=== PATIENT | female | born 1980 | race Caucasian/White ===

== ENCOUNTER 2017-03-02 22:50 | Emergency (ER) | payer MEDICARE, MEDICAID ==
[~2017-03-02 22:50] MED LIST: COREG DPS12.5 MG PO; HCTZ12.5 MG PO; KEPPRA DPS500 MG PO; KLONOPIN DPS1 MG PO; KLOR-CON M2020 ME1 PO; MEDROL DPS4 MG PO; PRILOSEC DPS20 MG PO; RISPERDAL3 MG PO; TEGRETOL DPS200 MG PO; [UNRECOGNIZED DRUG - OTHER] PO
--- NOTE | 2017-03-06 01:31 | ER ---
ADMIT: 03/02/2017 RM/LOC: ER [facility] MR#: [id number] [address] [address] [facility] [address] [place] [address] Emergency Room Report SEX: F AGE: 36 : 1980 DATE: 03/02/2017 ADDENDUM: A 36-year-old female with history of fairly frequent migraines, who is well-known to our Emergency Department, presents with migraine going on for the past 2 days. This is similar to her previous migraines. She was given shot of DHE, Reglan, and Toradol in addition to Benadryl p.o. Her headache was significantly improved and she felt fine being discharged home. She is to follow up with Dr. Betancur as needed and take her normal medications. DIAGNOSIS: Migraines. Maximo Wilkins MD/ makeda JOB #: [id number] CC: Maximo Wilkins MD, Attending Physician Haresh Betancur MD, Family Physician
[2017-06-21] MEDS ORDERED: TEGRETOL DPS200 MG PO (13:19)
[2017-06-21] MEDS ORDERED: RISPERIDONE4 MG PO (13:19)
[2017-06-21] MEDS ORDERED: HYDROXYZPAM PO (13:21)
[2017-06-21] MEDS ORDERED: OMEPRAZOLE40 MG PO (13:22)
[2017-06-21] MEDS ORDERED: SERTRALINE HCL50 MG PO (13:22)
[2017-06-21] MEDS ORDERED: KEPPRA DPS500 MG PO (13:22)
[2017-06-21] MEDS ORDERED: CARVEDILOL12.5 MG PO (13:22)
[2017-06-21] MEDS ORDERED: KLOR-CON M2020 ME1 PO (13:22)
[2017-06-21] MEDS ORDERED: CLONAZEPAM1 MG PO (13:23)
[2017-06-21] MEDS ORDERED: KLONOPIN DPS1 MG PO (13:23)
[2017-06-21] MEDS ORDERED: TOPIRAMATE100 MG PO (13:23)
[2017-06-21] MEDS ORDERED: DULERA 100/58.8 GM IH (13:23)
[2017-06-21] MEDS ORDERED: AUGMENTIN 250250 MG PO (13:24)
[2017-06-21] MEDS ORDERED: NICOTINE PATCH1 EAC2 TD (13:24)
[2017-06-21] MEDS ORDERED: SPIRIVA18 MCG IH (13:24)
[2017-06-21] MEDS ORDERED: LASIX DPS20 MG PO (13:25)
== END 2017-03-02 23:55 | disposition home or self-care (01) ==
LOC: ER 22:50
DX: G43.909 Migraine, unspecified, not intractable, without status migrainosus (principal)

== ENCOUNTER 2017-06-14 20:15 | Inpatient (IN) | payer MEDICARE, MEDICAID ==
[2017-06-21] MEDS ORDERED: RISPERIDONE4 MG PO (13:19)
[2017-06-21] MEDS ORDERED: TEGRETOL DPS200 MG PO (13:19)
[2017-06-21] MEDS ORDERED: HYDROXYZPAM PO (13:21)
[2017-06-21] MEDS ORDERED: SERTRALINE HCL50 MG PO (13:22)
[2017-06-21] MEDS ORDERED: CARVEDILOL12.5 MG PO (13:22)
[2017-06-21] MEDS ORDERED: KEPPRA DPS500 MG PO (13:22)
[2017-06-21] MEDS ORDERED: KLOR-CON M2020 ME1 PO (13:22)
[2017-06-21] MEDS ORDERED: OMEPRAZOLE40 MG PO (13:22)
[2017-06-21] MEDS ORDERED: CLONAZEPAM1 MG PO (13:23)
[2017-06-21] MEDS ORDERED: TOPIRAMATE100 MG PO (13:23)
[2017-06-21] MEDS ORDERED: KLONOPIN DPS1 MG PO (13:23)
[2017-06-21] MEDS ORDERED: DULERA 100/58.8 GM IH (13:23)
[2017-06-21] MEDS ORDERED: AUGMENTIN 250250 MG PO (13:24)
[2017-06-21] MEDS ORDERED: NICOTINE PATCH1 EAC2 TD (13:24)
[2017-06-21] MEDS ORDERED: SPIRIVA18 MCG IH (13:24)
[2017-06-21] MEDS ORDERED: LASIX DPS20 MG PO (13:25)
== END 2017-06-15 02:30 | disposition short-term general hospital (02) | DRG 917 ==
DX: T43.612A Poisoning by caffeine, intentional self-harm, initial encounter (principal); J96.90 Respiratory failure, unspecified, unspecified whether with hypoxia or hypercapnia; R56.9 Unspecified convulsions; I10 Essential (primary) hypertension; F17.210 Nicotine dependence, cigarettes, uncomplicated; D50.9 Iron deficiency anemia, unspecified; G43.909 Migraine, unspecified, not intractable, without status migrainosus; I70.1 Atherosclerosis of renal artery; F31.9 Bipolar disorder, unspecified; F41.9 Anxiety disorder, unspecified; K21.9 Gastro-esophageal reflux disease without esophagitis

== ENCOUNTER 2017-06-18 10:10 | Inpatient (IN) | payer MEDICARE, MEDICAID ==
[~2017-06-18] VITALS: Ht 157.5 cm; Wt 53.1 kg
--- NOTE | ~2017-06-18 | ECH ---
Transthoracic Echocardiography Report (TTE) Demographics Patient Name ARCADIO HINES Date of Study 06/19/2017 Patient Number [id number] Visit Number [id number] Date of 1980 Room Number 412 Accession Number [id number] Gender Female Age 37 year(s) Referring Adal Jurado Andrew Sales Agent Business Services Pura Meek [facility] Physician Physician Interpreting Uriah Thomas Production Supervisor Trainee Physician Supervising Ordering Physician Uriah Thomas MD/MLP Nurse Stress Rigger Helper Conclusions Summary Technically adequate exam. The estimated left ventricular ejection fraction is 45%. Segmental wall motion abnormalities noted. Mild to moderate left ventricular hypertrophy. Normal right ventricle structure and function. Mild mitral regurgitation by color Doppler. There is mild to moderate aortic regurgitation by color Doppler. Mild tricuspid regurgitation by color Doppler. Estimated pulmonary pressures within normal limits. Procedure Type of Study TTE procedure:Echo Complete SF. Procedure Date Date: 06/19/2017 Start: 09:23 AM Technical Quality: Adequate visualization Indications:Shortness of breath, Elevated Troponin and Congestive heart failure. Additional Indications:elevated BNP, Appropriate Use Criteria: 9 Height: 62 inches Weight: 119 pounds BSA: 1.53 m Rhythm: Within normal limits HR: 80 bpm BP: 125/89 mmHg M-Mode/2D Measurements LV Diastolic Dimension: 4.06 cm LV Systolic Dimension: 3.17 cm LV Septum Diastolic: 1.2 cm LV PW Diastolic: 1.38 cm AO Root Dimension: 2.85 cm Cardiac Output: 2.96 l/min LA Dimension: 3.21 cm Cardiac Index: 1.93 l/min*m RV Diastolic Dimension: 2.73 cm LA volume index: 34 ml/m LVOT: 1.66 cm LVOT VTI: 17.1 cm RV Base: 3.9 cm LV Stroke volume: 36.99 ml RV Mid: 2.7 cm LV Stroke volume index: 24.18 ml/m RV Length: 5.7 cm TAPSE: 2 cm TDI-S': 0.8 cm/s Doppler Measurements AV Peak Velocity: 1.12 m/s MV Peak E-Wave: 0.73 m/s AV Peak Gradient: 5.06 mmHg MV Peak A-Wave: 0.51 m/s AV Mean Gradient: 2.89 mmHg MV E/A Ratio: 1.45 LVOT Peak Velocity: 0.81 m/s MV P1/2t: 52.5 msec AV Area (Continuity):1.87 cm AV P1/2t: 537.8 msec MV Deceleration Time: 232.1 msec TR Velocity:2.19 m/s MV Area (PHT): 4.19 cm TR Gradient:19.18 mmHg PV Peak Velocity: 0.64 m/s Estimated RAP:5 mmHg PV Peak Gradient: 1.62 mmHg Estimated RVSP: 24 mmHg Estimated PASP: 24.18 mmHg RA Area: 15.61 cm Findings Left Ventricle The left ventricle is normal in size . Mild to moderate left ventricular hypertrophy. Diastolic assessment reveals normal relaxation. Right Ventricle Normal right ventricle structure and function. Left Atrium Left atrium at upper limits of normal size. Right Atrium Normal right atrial size. Mitral Valve Normal mitral valve structure and function. Mild mitral regurgitation by color Doppler. Aortic Valve Normal aortic valve structure and function. There is mild aortic regurgitation by color Doppler. Tricuspid Valve Normal tricuspid valve structure and function. Mild tricuspid regurgitation by color Doppler. Estimated pulmonary pressures within normal limits. Pulmonic Valve Normal pulmonic valve structure and function. Mild pulmonic valve regurgitation by color Doppler. Pericardial Effusion No evidence of pericardial effusion. Miscellaneous Visualized portions of the aortic root and ascending aorta appear normal in size. Pleural Effusion No evidence of pleural effusion. Contractility Score LV regional wall motion:(0-Non visualized 1-Normal 2-Hypokinesis 3-Akinesis 4-Dyskinesis 5-Aneurysm) Signature
--- NOTE | 2017-06-19 16:55 | HP ---
ADMIT: 06/18/2017 RM/LOC: 412 [facility] MR#: [id number] [address] [address] ARCADIO HINES [address] [place] [address] [place] [address] History and Physical SEX: F AGE: 37 : 1980 DATE OF SERVICE: CHIEF COMPLAINT: Shortness of breath. HISTORY OF PRESENT ILLNESS: This is a 37-year-old female, she has history of seizure disorder, bipolar, and "leaky aortic valve." She apparently was admitted just a few days ago after she was brought in after having a prolonged and protracted seizure at home. Apparently, she had been feeling very tired and so was taking lots of extra NoDoz caffeine tablets for about 3 days prior, but ultimately ended up having surgery. She was transferred out because of our lack of neurologist. However, she ultimately was discharged after she did okay, but then yesterday started noticing feeling short of breath and today was even worse. She then had some worsening shortness of breath when she lied down and was unable to do it. She is also having some associated cough and has productive sputum. She was not really able to tell me any more description than that. She has smoked for a long time. She wonders if this is related to any of her underlying problems. She does have some tightness in her chest when she lies down, but denies any pain in her chest per se. PAST MEDICAL HISTORY: Includes: 1. Migraines. 2. Hypertension. 3. Seizures. 4. Right renal artery stenosis. 5. Bipolar. 6. Anxiety. 7. Gastroesophageal reflux disease. 8. Chronic tobacco abuse. 9. History of anemia. 10.Aortic regurgitation. 11.History of noncompliance. PAST SURGICAL HISTORY: Includes: 1. Right oophorectomy. 2. Outpatient tubal ligation. 3. C-sections x2. 4. Right carpal tunnel. ALLERGIES: INCLUDE DIOVAN AND WELLBUTRIN. MEDICATIONS: Include: 1. Risperdal 4 mg at bedtime. 2. Coreg 12.5 b.i.d. 3. Omeprazole 20 mg b.i.d. 4. Klonopin 1 mg tablets one twice a day and then 1-1/2 in the evening as needed. 5. Carbamazepine mg in the morning, 200 mg at noon, and 200 mg in the evening. 6. Potassium 20 mEq. ADMIT: 06/18/2017 RM/LOC: 412 [facility] MR#: [id number] [address] [address] [place] [address] History and Physical SEX: F AGE: 37 : 1980 7. Keppra 1500 mg b.i.d. 8. Topamax 100 mg at bedtime. 9. Hydralazine 25 mg q.6 hours p.r.n. 10.Zoloft 50 mg daily at bedtime. FAMILY HISTORY: Reviewed but noncontributory. SOCIAL HISTORY: She is a long-time smoker and she is here with her significant other. REVIEW OF SYSTEMS: She has been feeling chilled lately. The patient said the day after she was discharged, she had a couple of black stools, but has not had any more of that since then. PHYSICAL EXAMINATION: VITAL SIGNS: Temperature is 96.3, pulse 85, respirations 16, blood pressure 128/89, oxygen saturation 98% on room air. GENERAL: This is a 37-year-old white female. She appears older than her stated age. She is in no apparent distress. She is alert. She is oriented. The room smells like tobacco smoke and alcohol. HEENT: Pupils are equal, round, and reactive to light and accommodation. Extraocular muscles are intact. Throat clear. NECK: Supple. Trachea midline. Thyroid not palpable. HEART: Regular rate and rhythm but distant. LUNGS: Diminished bilaterally but clear. Some faint crackles in right base. ABDOMEN: Soft without any tenderness. LOWER EXTREMITIES: Have no edema. NEURO: Her cranial nerves are intact. She can move all extremities equally bilaterally. She is wrapped up in a blanket right now and saying that she feels chilled. LABORATORY AND X-RAY DATA: CBC with a white count of 6.9, hemoglobin 9.0, platelets of 311. Sodium 137, potassium 4.2, bicarb 18, BUN 16, creatinine 0.9, alkaline phosphatase 194, AST is 60, ALT 69, bilirubin is normal 0.8. NT- proBNP is 7900. Troponin I is 0.131. Creatine kinase 365. D-dimer is elevated. Chest CT scan with marked emphysematous and fibrotic change; bilateral pleural effusions, right greater than left with atelectatic changes with associated inflammatory pneumonia on the right more than left. Stable nodule in left lung. Small pericardial effusion. Stable mediastinal lymphadenopathy. ASSESSMENT: 1. Shortness of breath. 2. Aspiration pneumonia. 3. Chronic obstructive pulmonary disease. 4. Elevated troponin. 5. Elevated BNP. 6. Bipolar disorder. 7. History of anemia. ADMIT: 06/18/2017 RM/LOC: [address] [place] [address] MR#: [id number] [address] [place] [address] [place] [address] History and Physical SEX: F AGE: 37 : 1980 8. Melena. PLAN: She is admitted to the hospital. We will watch her pretty carefully. Watch her hemoglobin carefully. She has already been given some Lasix. We will give her some prednisone or some steroids and some antibiotics to hopefully clear her lungs a little bit, that should help with the COPD and emphysema as well. She did get a breathing treatment in the emergency room, but this did not help her symptoms. We will avoid that for now. She has a severe history of anxiety, so we will try not to make this any worse. We will continue her on her same seizure medications and likely have to get an echocardiogram given the elevated cardiac markers and possible CHF symptoms. Adrien Galeas MD/ makeda JOB #: [id number] CC: Adrien Galeas, Attending Physician Adrien Galeas, Family Physician
--- NOTE | 2017-06-20 19:25 | ER ---
ADMIT: 06/18/2017 RM/LOC: 412 [facility] MR#: [id number] [address] [address] ARCADIO HINES [address] [place] [address] Emergency Room Report SEX: F AGE: 37 : 1980 DATE: 06/18/2017 SUBJECTIVE: The patient is a 37-year-old female with a past medical history of anxiety and depression, bipolar, and allegedly leaky aortic valve, and possible aortic regurgitation, who came to the ER with a chief complaint of shortness of breath for the last 3 days. Per chart and per the patient, 2 days ago, she had a seizure for which she came to the ER and seizure lasted about 10 minutes and she was intubated, and the patient was transferred to other centers. The patient was extubated and states that since 3 days ago, she noticed she has increased shortness of breath. Per chart and also per the patient, at that time, there was some suspicion of overdoses specifically on caffeine pills as the patient states that she felt recently very tired and took too many caffeine pills. Urine tox was negative. The patient denies any chest pain, but complains of supraumbilical mild abdominal pain. The patient denies any nausea or vomiting or diarrhea. The patient also denies any chest pain. Shortness of breath is exertional and the patient states that even walking a small distance, even few rooms would make her short of breath. Also, the patient complains orthopnea and stated that if she lies flat, she could not breathe well, becomes more short of breath. The patient denies any fever. PHYSICAL EXAMINATION: VITAL SIGNS: In the ER, the patient was tachypneic with a respiratory rate of 24 to 30, O2 saturation was good in the high 90s, and the patient was afebrile, blood pressure was 117/89. GENERAL: The patient was in mild distress and anxious. The patient was not very cooperative. HEAD AND NECK: Trachea is midline. There is no bruit in the neck. CHEST: Questionable for some fine crackles on the posterior bilaterally. HEART: Normal S1, S2 without any murmurs. ABDOMEN: Soft and nontender in all of the abdomen with possible intermittent supraumbilical mild tenderness which in the repeat exam was gone. The patient had no CVA tenderness. Rest of the physical exam is negative and noncontributory. EKG showed normal sinus rhythm with a rate of 75. The patient received Ativan ADMIT: 06/18/2017 RM/LOC: 412 [facility] MR#: [id number] [address] [address] [place] [address] Emergency Room Report SEX: F AGE: 37 : 1980 1 mg IV for possible anxiety. The patient was reexamined and still had tachypnea. The patient received one breathing treatment with DuoNeb. Chest x- ray showed bilateral lower effusion and possible edema, mild. White blood cells were 6.9 with a hemoglobin of 9 and platelets of 315,000. Troponin was mildly elevated to 0.13 and BNP was elevated to 7900. D-dimer was also elevated to 2.2. CT angiogram of the chest was negative for PE, but was positive for pleural effusion. DIAGNOSIS: With the diagnosis of new onset congestive heart failure and rule out [id number] elevation myocardial infarction, the patient was admitted for further followups and treatments. Donald Renteria MD/ makeda JOB #: [id number] CC: Adrien Galeas MD, Attending Physician Adrien Galeas MD, Family Physician
[2017-06-21] MEDS ORDERED: RISPERIDONE4 MG PO (13:19)
[2017-06-21] MEDS ORDERED: TEGRETOL DPS200 MG PO (13:19)
[2017-06-21] MEDS ORDERED: HYDROXYZPAM PO (13:21)
[2017-06-21] MEDS ORDERED: OMEPRAZOLE40 MG PO (13:22)
[2017-06-21] MEDS ORDERED: KEPPRA DPS500 MG PO (13:22)
[2017-06-21] MEDS ORDERED: CARVEDILOL12.5 MG PO (13:22)
[2017-06-21] MEDS ORDERED: SERTRALINE HCL50 MG PO (13:22)
[2017-06-21] MEDS ORDERED: KLOR-CON M2020 ME1 PO (13:22)
[2017-06-21] MEDS ORDERED: KLONOPIN DPS1 MG PO (13:23)
[2017-06-21] MEDS ORDERED: DULERA 100/58.8 GM IH (13:23)
[2017-06-21] MEDS ORDERED: TOPIRAMATE100 MG PO (13:23)
[2017-06-21] MEDS ORDERED: CLONAZEPAM1 MG PO (13:23)
[2017-06-21] MEDS ORDERED: AUGMENTIN 250250 MG PO (13:24)
[2017-06-21] MEDS ORDERED: SPIRIVA18 MCG IH (13:24)
[2017-06-21] MEDS ORDERED: NICOTINE PATCH1 EAC2 TD (13:24)
[2017-06-21] MEDS ORDERED: LASIX DPS20 MG PO (13:25)
--- NOTE | 2017-06-22 13:40 | CO ---
ADMIT: 06/18/2017 RM/LOC: 412 [facility] MR#: [id number] [facility]#: [id number] [address] [address] ARCADIO HINES [place] [address] Consultation SEX: F AGE: 37 : 1980 DATE OF CONSULTATION: 06/19/2017 ATTENDING PHYSICIAN: Adrien Galeas CONSULTING PHYSICIAN: Jefry Kruse MD REASON FOR CONSULT: Possible heart failure. HISTORY OF PRESENT ILLNESS: Arcadio is a 37-year-old lady who apparently was seen in the past, and she says there was some sort of valve problem. I have not seen the records at this point. I was asked to see her today at the request of Dr. Galeas for possible heart failure contributing to her shortness of breath. Arcadio has an underlying seizure disorder. Just last week, she came in with a prolonged seizure and fell down her stairs. She was able to regain consciousness, but required intubation. She was ultimately transferred to [place]. She said a few days later, she was discharged. She was short of breath ever since she was discharged home. She said her shortness is so bad that she cannot lie flat at night. She has had persistent pretty dry cough, which has been very irritating to her. She denies chest pain or palpitations. Besides the questionable history of valve disease, she has not had pericarditis or history of rheumatic fever. She denies significant lightheadedness. No recent syncope, and she has not had a recurrent seizure. She denies worsening edema. Her BNP is elevated. She did have a CT of her chest last night, which did not show any pulmonary emboli. She had marked emphysematous and fibrotic changes and some rather small bilateral pleural effusions. PAST MEDICAL HISTORY: Illnesses include bipolar disorder, gastroesophageal reflux disease, chronic anemia, questionable history of aortic valve disease, seizure disorder, hypertension, migraine headaches, and anxiety. ALLERGIES: SHE IS ALLERGIC TO WELLBUTRIN AND DIOVAN. HOME MEDICATIONS: Include: 1. Carbamazepine 200 mg b.i.d. 2. Risperidone 4 mg at bedtime. 3. Levetiracetam 1500 mg daily. 4. Potassium 60 mEq daily. 5. Omeprazole 40 mg b.i.d. 6. Zoloft 50 mg daily. 7. Carvedilol 12.5 mg b.i.d. 8. Topiramate 100 mg at bedtime. 9. Clonazepam 1 mg b.i.d. p.r.n. and at bedtime. PAST SURGICAL HISTORY: Includes 2 C-sections, carpal tunnel surgery, and I believe she has had a tubal ligation. ADMIT: 06/18/2017 RM/LOC: 412 [facility] MR#: [id number] [address] [address] [facility] [address] [place] [address] Consultation SEX: F AGE: 37 : 1980 FAMILY HISTORY: Her father in his early 50s of a heart attack. Several grandparents with diabetes. No family history of cancer. Grandmother had a stroke. Her mother suffers from COPD, but is alive. SOCIAL HISTORY: Arcadio lives here in [place]. She is disabled from her bipolar disorder and seizure. She has never been . She has 3 children. She says she is engaged. No significant alcohol use. She denies illicit drug use history. She drinks 6 to 9 caffeinated beverages a day and does not follow a special diet. REVIEW OF SYSTEMS: GENERAL: She tires easily and had some recent weight changes. EYES: Positive for blurry vision. ENT: Positive for chronic sinus and throat problems. PULMONARY: Positive for bronchitis and chronic cough, waking more than once a night and feeling tired in the morning. GASTROINTESTINAL: Positive for heartburn, reflux, stomach ulcer, and black stools. GENITOURINARY: Denies dysuria, hematuria, nocturia, urinary tract infection, or kidney stones. Denies history of renal insufficiency or failure. MUSCULOSKELETAL: Denies history of arthritis or gout. Denies muscle or joint pains. ENDOCRINE: Denies history of thyroid dysfunction or diabetes. HEMATOLOGIC/LYMPHATIC: Positive for anemia. NEUROLOGIC: Positive for chronic headaches, migraine headaches, seizure disorder, numbness, and tingling. PSYCHIATRIC: Positive for mental illness, depression, and anxiety. PHYSICAL EXAMINATION: VITAL SIGNS: Her blood pressure is 125/89, pulse is 89, and respirations 18. She is afebrile. Her O2 saturations are 93% on room air. GENERAL: She is alert and oriented. When I walked into the room, she was working on her coloring book with multiple markers sitting at her side. She greeted me pleasantly and appears in no distress. She has an obvious irritating cough. SKIN: Poor color, warm, and dry. EYES: Sclerae clear. No xanthelasmas. ENT: Poor dentition. Oral mucosa is pink and moist. No jugular venous distention or carotid bruits. CHEST: Diminished in the bases and diffuse wheezes throughout. I do not appreciate any specific areas with significant crackles. HEART: I do not hear a diastolic murmur. No other significant murmurs. No definitive gallops, and the PMI does not appear to be displaced. ABDOMEN: Soft and nontender. MUSCULOSKELETAL: Gait is normal. EXTREMITIES: There is no significant edema. Peripheral pulses palpable. No clubbing or cyanosis. PSYCHIATRIC: Alert and oriented. Mood and affect are appropriate. ADMIT: 06/18/2017 RM/LOC: 412 [facility] MR#: [id number] [address] [place] [address] [facility] [address] [address] Consultation SEX: F AGE: 37 : 1980 EKG: A 12-lead EKG shows sinus rhythm with nonspecific ST changes. No definitive Q-waves, and normal QRS. LABORATORY DATA: Sodium 136, potassium 4.0, CO2 is 16, BUN 10, and creatinine 0.9. AST and ALT are normal. Her CK is 289. Her MB is only 1.4. Her troponin has been minimally elevated, peak was 0.156 to 0.078 today. Her proBNP was 7900, and back in 2011, it was over 10,000. TSH recently was 2.37. Her white count is 7.4, hemoglobin is 8.5, and platelet count 329,000. IMPRESSION: 1. Shortness of breath. 2. Possible history of aortic valve disease. 3. Chronic obstructive pulmonary disease with ongoing tobacco abuse. 4. Seizure disorder. 5. Anemia. 6. Bipolar disorder. 7. Equivocal troponin. RECOMMENDATIONS: The BNP is elevated, but by physical exam, she does not appear to be markedly fluid overloaded. She does have some small bilateral pleural effusions, but it seems like from her imaging that these are more fibrotic and emphysematous changes. I wonder if she did get a lot of fluid resuscitation with a recent hospitalization with her bilateral pleural effusions, which are contributing to her shortness of breath, and I think it is reasonable to continue some Lasix. She has clinically improved. However, residential, I think this is more of emphysema problem than underlying congestive heart failure. She does mention to me that there is a question of aortic valve disease. I am going to do an echo today, and I will try to review her records. Obviously, her anemia is also contributing to her shortness of breath, and this appears chronic. The troponin, I think, is nonspecific. Her CK is elevated, but her MB is completely normal. I see no evidence of an acute coronary syndrome. I do not sense any urgency, but at some point, we could do an ischemic evaluation. My suspicion for significant obstructive underlying coronary disease is quite low. Jefry Kruse MD/ makeda JOB #: [id number] CC: Adrien Galeas, Attending Physician ADMIT: 06/18/2017 RM/LOC: 412 [facility] MR#: [id number] 2620 [facility] [address] [place] [address] ARCADIO HINES [address] [place] [address] Consultation SEX: F AGE: 37 : 1980 Adrien Galeas, Family Physician
--- NOTE | 2017-07-12 07:49 | DS ---
ADMIT: 06/18/2017 RM/LOC: 412 [facility] MR#: [id number] [address] [address] L[facility] SMITH [address] [place] [address] General Discharge Summary SEX: F AGE: 37 : 1980 ADMISSION DATE: 06/18/2017 DISCHARGE DATE: 06/20/2017 FINAL DIAGNOSES: A 37-year-old female, history of some seizures and bipolar, presented with increased shortness of breath. Final diagnosis included: 1. Shortness of breath. 2. Interstitial edema. 3. Anemia. 4. Elevated CK and troponin. 5. Acute systolic heart failure. 6. Elevated LFTs. 7. Aspiration pneumonia. 8. Hypoxic respiratory failure. 9. Question of gastrointestinal bleeding. 10.Severe chronic obstructive pulmonary disease. REASON FOR ADMISSION: Above. HOSPITAL COURSE: She was admitted. Cardiology consult obtained. They felt outpatient evaluation as needed. Evaluation of her lungs revealed she had severe COPD. We placed her on inhalers. She is scheduled for an outpatient stress test and then arranged to be home. She did need some oxygen, so this was arranged for her as well. DISCHARGE MEDICATIONS: See discharge medication list for that. She will be on Augmentin 850 mg b.i.d. for 10 days for the pneumonia. 22 minutes taken on the day of discharge on discharge related activities. Adrien Galeas MD/ alexl JOB #: [id number] CC: Adrien Galeas MD, Attending Physician Adrien Galeas MD, Family Physician
== END 2017-06-20 11:42 | disposition home or self-care (01) | DRG 177 ==
LOC: ER 10:10 → 4PCU 12:50
PROVIDERS: ADMIT Internal Medicine
DX: J69.0 Pneumonitis due to inhalation of food and vomit (principal); J96.91 Respiratory failure, unspecified with hypoxia; I50.21 Acute systolic (congestive) heart failure; J44.9 Chronic obstructive pulmonary disease, unspecified; F41.9 Anxiety disorder, unspecified; F31.9 Bipolar disorder, unspecified; I35.8 Other nonrheumatic aortic valve disorders; R51 Headache; G40.909 Epilepsy, unspecified, not intractable, without status epilepticus; G43.909 Migraine, unspecified, not intractable, without status migrainosus; I70.1 Atherosclerosis of renal artery; K21.9 Gastro-esophageal reflux disease without esophagitis; I35.1 Nonrheumatic aortic (valve) insufficiency; F17.210 Nicotine dependence, cigarettes, uncomplicated; R79.89 Other specified abnormal findings of blood chemistry; D64.9 Anemia, unspecified; I34.0 Nonrheumatic mitral (valve) insufficiency; I36.1 Nonrheumatic tricuspid (valve) insufficiency